=== PATIENT | male | born 1990 | race Two or more races ===

== ENCOUNTER 2021-09-13 02:28 | Emergency (ER) | payer OTHER ==
[~2021-09-13] VITALS: Ht 172.7 cm; Wt 79.4 kg
--- NOTE | 2021-09-13 02:41 | NUR ---
PATIENT BIBRA [id number] FROM THE STREETS C/O DIFFUSED ABDOMINAL PAIN X4 HOURS. PATIENT STATES HE IS "UNABLE TO HOLD ANYTHING DOWN". PATIENT C/O VOMITTING DENIES ANY NAUSEA OR DIARRHEA. ALERT AND ORIENTED X3. AMBULATORY WITH NON LABORED BREATHING.
[2021-09-13] MEDS ORDERED: ONDANSETRON HCL/PF 4 MG/2 ML VIAL ONE ×2 (02:45→05:36)
[2021-09-13] MEDS ORDERED: MORPHINE SULFATE INJ 4 MG/ML DISP.SYRIN ONE (02:46)
[2021-09-13] MEDS ORDERED: ONDANSETRON HCL/PF 4 MG/2 ML VIAL IVP ONE (03:00)
[2021-09-13] MEDS ORDERED: MORPHINE SULFATE INJ 2 MG/ML DISP.SYRIN IV ONE (03:00)
[2021-09-13] MEDS ORDERED: IV NS 0.9% 1,000 ML BAG IV ONE (03:00)
--- NOTE | 2021-09-13 03:03 | NUR ---
pt being transported to ct scan via [facility]
[2021-09-13 03:06] LABS: BILIRUBIN,URINE NEGATIVE (NEGATIVE); COLOR,URINE YELLOW (YELLOW); LEUKOCYTE ESTERASE ,URINE NEGATIVE (NEGATIVE); NITRITE, URINE NEGATIVE (NEGATIVE); PROTEIN,URINE TRACE mg/dl (NEGATIVE); UGLUCOSE NEGATIVE (NEGATIVE); UROBILINOGEN,URINE 0.2 EU/dL (0.2)
[2021-09-13 03:07] LABS: BASOPHILS % (AUTO) 0.3 % (0.0-2.0); HEMATOCRIT 52 % (39-51); HEMOGLOBIN 17.5 g/dL (13.5-17.5); LYMPHOCYTES # (AUTO) 1.3 K/uL (0.8-4.8); LYMPHOCYTES % (AUTO) 12.1 % (20.0-44.0); MEAN CORPUSCULAR HGB CONC 34 g/dl (31.0-36.0); MEAN CORPUSCULAR VOLUME 88 fL (80-96); MONOCYTES # (AUTO) 0.5 K/uL (0.1-1.30); MONOCYTES % (AUTO) 4.9 % (2.0-12.0); NEUTROPHILS # (AUTO) 8.6 K/uL (1.8-8.9); NEUTROPHILS % (AUTO) 82.7 % (43.0-81.0); PLATELET COUNT (AUTO) 438 K/uL (150-450); RED BLOOD CELL COUNT(AUTO) 5.85 MIL/uL (4.5-6.0); WHITE BLOOD COUNT (AUTO) 10.3 K/uL (4.3-11.0)
--- NOTE | 2021-09-13 03:15 | NUR ---
PT RETURNED FROM CT
[2021-09-13 03:29] LABS: ALANINE AMINOTRANSFERASE 30 U/L (12-78); ALKALINE PHOSPHATASE 96 U/L (46-116); ASPARTATE AMINOTRANSFERASE 26 U/L (15-37); BILIRUBIN,DIRECT 0.2 mg/dL (0.0-0.2); BILIRUBIN,TOTAL 0.5 mg/dL (0.2-1.0); CALCIUM, SERUM 8.9 mg/dL (8.5-10.1); CARBON DIOXIDE 24 mmol/L (21-32); CHLORIDE 93 mmol/L (98-107); CREATININE 1.2 mg/dL (0.6-1.3); GLUCOSE 132 mg/dL (74-106); LIPASE 71 U/L (73-393); POTASSIUM 3.5 mmol/L (3.5-5.1); SODIUM SERUM 131 mmol/L (136-145); TOTAL PROTEIN, SERUM 8.3 g/dL (6.4-8.2); UREA NITROGEN, BLOOD 15 mg/dL (7-18)
--- NOTE | 2021-09-13 04:35 | NUR ---
FOLLOWED UP WITH RADIOLOGY REGARDING ULTRASOUND. TECH PAGED AGAIN
[2021-09-13] MEDS ORDERED: ONDA4TAB5 PO (05:22)
[2021-09-13] MEDS ORDERED: PANT40TA2 PO (05:22)
[2021-09-13] MEDS ORDERED: ONDANSETRON HCL/PF 4 MG/2 ML VIAL IV ONE (06:00)
--- NOTE | 2021-09-13 06:03 | NUR ---
DISCHARGE INSTRUCTIONS GIVEN WITH RX.
[2021-09-13 06:07] VITALS: BP 144/70
== END 2021-09-13 06:04 | disposition home or self-care (01) ==
LOC: ER 02:38
DX: K20.90 Esophagitis, unspecified without bleeding (principal); Z79.899 Other long term (current) drug therapy
CPT/HCPCS: 36415; 74176; 76705; 80048; 80076; 81003; 83690; 84484; 85025; 85730; 93005; 96361; 96374; 96375; 96376; 99285; J2270; J2405 ×2; J7030